=== PATIENT | female | born 1990 | race Two or more races ===

== ENCOUNTER → 2017-09-20 | Emergency (ER) | payer OTHER ==
[~2017-09-20] VITALS: Ht 162.6 cm; Wt 131.5 kg
[~2017-09-20] MED LIST: ALBUTEROL2.5 MG/3 M IH; CEFTIN250 MG PO; GILTUSS TR TAB1 EACH PO; KETO10TA2 PO; LOTREL 5-10 MG1 CAP; OMEPRAZOLE20 M1; PREVACID30 MG; PROVENTIL3 ML/2.5 M IH; PULMICORT1 MG/2 ML IH; SINGULAIR 10MG10 MG PO; SPRINTEC1 TAB; TUSSIONEX PENNKI5 ML PO; ZANTAC300 MG
== END | disposition home or self-care (01) ==
LOC: ER 17:02
DX: K52.89 Other specified noninfective gastroenteritis and colitis (principal); N39.0 Urinary tract infection, site not specified; R82.79 Other abnormal findings on microbiological examination of urine

== ENCOUNTER 2017-12-19 00:34 | Emergency (ER) | payer OTHER ==
[~2017-12-19] VITALS: Ht 162.6 cm; Wt 129.7 kg
[2017-12-19] MEDS ORDERED: PULMICORT FLE180 MCG IH (02:44)
[2017-12-19] MEDS ORDERED: PULMICORT1 MG/2 ML IH (02:44)
== END 2017-12-19 03:18 | disposition home or self-care (01) ==
LOC: ER 00:34
DX: J45.998 Other asthma (principal)

== ENCOUNTER → 2018-02-20 | Emergency (ER) | payer OTHER ==
[~2018-02-20] VITALS: Ht 162.6 cm; Wt 127.0 kg
[~2018-02-20] MED LIST changes: +ADVIL100 M1; +NORFLEX100MG PO; +PULMICORT FLE180 MCG IH
== END | disposition home or self-care (01) ==
LOC: ER 22:36
DX: S16.1XXA Strain of muscle, fascia and tendon at neck level, initial encounter (principal); S39.012A Strain of muscle, fascia and tendon of lower back, initial encounter; W18.39XA Other fall on same level, initial encounter; Y93.89 Activity, other specified; Y92.89 Other specified places as the place of occurrence of the external cause; Y99.8 Other external cause status

== ENCOUNTER 2018-04-08 00:29 | Emergency (ER) | payer OTHER ==
[~2018-04-08] VITALS: Ht 162.6 cm; Wt 118.8 kg
[2018-04-08] MEDS ORDERED: MUCINEX DM ER1 EAC1 PO (04:38)
[2018-04-08] MEDS ORDERED: PROMETH-CODEIN 65 ML PO (04:38)
[2018-04-08] MEDS ORDERED: MEDROLPACK PO (04:38)
[2018-04-08] MEDS ORDERED: IPRAT-ALBUT 0.5-3 ML IH (04:38)
[2018-04-08] MEDS ORDERED: BUDESONIDE0.5 MG/2 M IH (04:38)
[2018-04-08] MEDS ORDERED: ZITHROMAX TRI-500 MG PO (04:38)
== END 2018-04-08 04:48 | disposition home or self-care (01) ==
LOC: ER 00:29
DX: J06.9 Acute upper respiratory infection, unspecified (principal); J45.998 Other asthma

== ENCOUNTER 2019-01-11 12:04 | Emergency (ER) | payer OTHER ==
[~2019-01-11] VITALS: Ht 162.6 cm; Wt 133.8 kg
[~2019-01-11 12:04] MED LIST changes: +BUDESONIDE0.5 MG/2 M IH; +IPRAT-ALBUT 0.5-3 ML IH; +MEDROLPACK PO; +MUCINEX DM ER1 EAC1 PO; +PROMETH-CODEIN 65 ML PO; +ZITHROMAX TRI-500 MG PO
== END 2019-01-11 18:38 | disposition home or self-care (01) ==
LOC: ER 12:04
DX: J45.998 Other asthma (principal); B34.9 Viral infection, unspecified

== ENCOUNTER 2019-04-04 18:16 | Emergency (ER) | payer OTHER ==
[~2019-04-04] VITALS: Ht 162.6 cm; Wt 133.8 kg
== END 2019-04-04 20:35 | disposition home or self-care (01) ==
LOC: ER 18:16
DX: S83.8X2A Sprain of other specified parts of left knee, initial encounter (principal); S39.82XA Other specified injuries of lower back, initial encounter; W01.198A Fall on same level from slipping, tripping and stumbling with subsequent striking against other object, initial encounter; Y93.89 Activity, other specified; Y92.018 Other place in single-family (private) house as the place of occurrence of the external cause; Y99.8 Other external cause status

== ENCOUNTER 2019-07-02 13:44 | Emergency (ER) | payer OTHER ==
[~2019-07-02] VITALS: Ht 160 cm; Wt 129.3 kg
[2019-07-02] MEDS ORDERED: PRILOSEC OTC20 MG PO (14:20)
[2019-07-02] MEDS ORDERED: MAXITROL EYE O3.5 GM OP (17:05)
[2019-07-02] MEDS ORDERED: DICLOFENAC SODI75 MG PO (17:05)
== END 2019-07-02 17:45 | disposition home or self-care (01) ==
LOC: ER 13:44
DX: H00.014 Hordeolum externum left upper eyelid (principal)

== ENCOUNTER 2019-12-23 17:58 | Emergency (ER) | payer OTHER ==
[~2019-12-23] VITALS: Ht 160 cm; Wt 133.8 kg
[~2019-12-23 17:58] MED LIST changes: +DICLOFENAC SODI75 MG PO; +MAXITROL EYE O3.5 GM OP; +PRILOSEC OTC20 MG PO
== END 2019-12-24 00:12 | disposition home or self-care (01) ==
LOC: ER 17:58
DX: K52.9 Noninfective gastroenteritis and colitis, unspecified (principal)

== ENCOUNTER 2020-01-30 18:18 | Emergency (ER) | payer OTHER ==
[~2020-01-30] VITALS: Ht 162.6 cm; Wt 135.2 kg
== END 2020-01-30 20:31 | disposition home or self-care (01) ==
LOC: ER 18:18
DX: N94.4 Primary dysmenorrhea (principal); N83.01 Follicular cyst of right ovary

== ENCOUNTER 2020-08-18 19:44 | Emergency (ER) | payer OTHER ==
[~2020-08-18] VITALS: Ht 160 cm; Wt 135.2 kg
[2020-08-18] MEDS ORDERED: MEDROLPACK PO (23:02)
[2020-08-18] MEDS ORDERED: ALBUTEROL2.5 MG/3 M IH (23:02)
[2020-08-18] MEDS ORDERED: ZITHROMAX500 MG PO (23:02)
[2020-08-18] MEDS ORDERED: TUSNEL LIQUID178 ML PO (23:02)
== END 2020-08-19 00:03 | disposition home or self-care (01) ==
LOC: ER 19:44
DX: J45.998 Other asthma (principal); Z11.52 Encounter for screening for COVID-19

== ENCOUNTER 2020-10-20 14:49 | Emergency (ER) | payer OTHER ==
[~2020-10-20] VITALS: Ht 162.6 cm; Wt 131.5 kg
[~2020-10-20 14:49] MED LIST changes: +TUSNEL LIQUID178 ML PO; +ZITHROMAX500 MG PO
[2020-10-20] MEDS ORDERED: ACID REDUCER20 M1 PO (14:55)
[2020-10-20] MEDS ORDERED: INTEGRA PLUS C1 EACH PO (19:56)
[2020-10-20] MEDS ORDERED: DEPO-PROVE150 MG/1 M IM (19:56)
== END 2020-10-20 20:06 | disposition home or self-care (01) ==
LOC: ER 14:49
DX: N93.8 Other specified abnormal uterine and vaginal bleeding (principal); R10.2 Pelvic and perineal pain

== ENCOUNTER 2020-10-26 12:22 | Emergency (ER) | payer OTHER ==
[~2020-10-26] VITALS: Ht 162.6 cm; Wt 133.8 kg
[~2020-10-26 12:22] MED LIST changes: +ACID REDUCER20 M1 PO; +DEPO-PROVE150 MG/1 M IM; +INTEGRA PLUS C1 EACH PO
[2020-10-26] MEDS ORDERED: NUCYNTA100 MG PO (17:05)
[2020-10-26] MEDS ORDERED: DEPO-PROVE150 MG/11 IM (17:05)
== END 2020-10-26 17:34 | disposition home or self-care (01) ==
LOC: ER 12:22
DX: N93.8 Other specified abnormal uterine and vaginal bleeding (principal); R10.2 Pelvic and perineal pain

== ENCOUNTER 2021-04-15 22:26 | Emergency (ER) | payer OTHER ==
[~2021-04-15] VITALS: Ht 162.6 cm; Wt 136.1 kg
[~2021-04-15 22:26] MED LIST changes: +DEPO-PROVE150 MG/11 IM; +NUCYNTA100 MG PO
[2021-04-15] MEDS ORDERED: HYDROCHLOROTH12.5 MG (22:40)
== END 2021-04-16 01:12 | disposition home or self-care (01) ==
LOC: ER 22:26
DX: I10 Essential (primary) hypertension (principal)

== ENCOUNTER 2021-04-16 16:24 | Emergency (ER) | payer OTHER ==
[~2021-04-16] VITALS: Ht 162.6 cm; Wt 136.1 kg
[~2021-04-16 16:24] MED LIST changes: +HYDROCHLOROTH12.5 MG
== END 2021-04-16 22:01 | disposition home or self-care (01) ==
LOC: ER 16:24
DX: R51.9 Headache, unspecified (principal); I10 Essential (primary) hypertension

== ENCOUNTER 2021-06-24 05:14 | Emergency (ER) | payer OTHER ==
[~2021-06-24] VITALS: Ht 162.6 cm; Wt 133.8 kg
[2021-06-24] MEDS ORDERED: NIFEDIPINE20 MG (06:00)
[2021-06-24] MEDS ORDERED: KETO10TA2 PO (09:58)
== END 2021-06-24 10:07 | disposition home or self-care (01) ==
LOC: ER 05:14
DX: R10.2 Pelvic and perineal pain (principal)

== ENCOUNTER 2021-08-18 15:34 | Emergency (ER) | payer OTHER ==
[~2021-08-18] VITALS: Ht 162.6 cm; Wt 131.5 kg
[~2021-08-18 15:34] MED LIST changes: +NIFEDIPINE20 MG
[2021-08-18] MEDS ORDERED: PERCOGESIC EXT1 EACH PO (21:43)
[2021-08-18] MEDS ORDERED: ORPHENADRINE C100 MG PO (21:43)
== END 2021-08-18 22:08 | disposition home or self-care (01) ==
LOC: ER 15:34
DX: M54.30 Sciatica, unspecified side (principal); N39.0 Urinary tract infection, site not specified; I10 Essential (primary) hypertension

== ENCOUNTER 2021-09-28 02:46 | Emergency (ER) | payer OTHER ==
[~2021-09-28] VITALS: Ht 162.6 cm; Wt 131.5 kg
[~2021-09-28 02:46] MED LIST changes: +ORPHENADRINE C100 MG PO; +PERCOGESIC EXT1 EACH PO
[2021-09-28] MEDS ORDERED: SINGULAIR 10MG10 MG PO (07:32)
[2021-09-28] MEDS ORDERED: FLOVENT HFA12 G1 IH (07:32)
[2021-09-28] MEDS ORDERED: PROVENTIL HFA6.7 GM IH (07:32)
[2021-09-28] MEDS ORDERED: ALBUTEROL2.5 MG/3 M IH (07:32)
== END 2021-09-28 07:54 ==
LOC: ER 02:46
DX: J45.901 Unspecified asthma with (acute) exacerbation (principal); Z20.822 Contact with and (suspected) exposure to COVID-19

== ENCOUNTER 2022-02-13 18:54 | Emergency (ER) | payer OTHER ==
[~2022-02-13] VITALS: Ht 162.6 cm; Wt 136.1 kg
[~2022-02-13 18:54] MED LIST changes: +FLOVENT HFA12 G1 IH; +PROVENTIL HFA6.7 GM IH
== END 2022-02-13 23:02 | disposition home or self-care (01) ==
LOC: ER 18:54
DX: J45.901 Unspecified asthma with (acute) exacerbation (principal); I10 Essential (primary) hypertension

== ENCOUNTER 2022-02-28 16:30 | Emergency (ER) | payer OTHER ==
[~2022-02-28] VITALS: Ht 162.6 cm; Wt 127.0 kg
== END 2022-02-28 20:22 | disposition home or self-care (01) ==
LOC: ER 16:30
DX: N39.0 Urinary tract infection, site not specified (principal)

== ENCOUNTER 2023-02-01 19:46 | Emergency (ER) | payer OTHER ==
[~2023-02-01] VITALS: Ht 162.6 cm; Wt 131.5 kg
== END 2023-02-02 02:23 | disposition home or self-care (01) ==
LOC: ER 19:46
PROVIDERS: Emergency Medicine
DX: K57.32 Diverticulitis of large intestine without perforation or abscess without bleeding (principal); R10.9 Unspecified abdominal pain; N83.291 Other ovarian cyst, right side

== ENCOUNTER 2023-05-26 14:12 | Emergency (ER) | payer OTHER ==
[~2023-05-26] VITALS: Ht 162.6 cm; Wt 131.5 kg
[2023-05-26 16:04] LABS: HEMATOCRIT 34.4 % (36.0-45.00); HEMOGLOBIN 11.2 g/dL (12.0-15.00); MEAN CORPUSCULAR HEMOGLOBIN 22.8 pg (27.00-32.0); MEAN CORPUSCULAR HGB CONC 32.6 g/dl (32.0-36.0); PLATELET COUNT 363 K/uL (150-450); RED BLOOD COUNT 4.93 M/uL (4.00-6.00); RED CELL DISTRIBUTION WIDTH 17.5 % (11.5-14.5)
[2023-05-26 16:06] LABS: MEAN CELL VOLUME 69.7 fL (80.00-100.00)
== END 2023-05-26 21:09 | disposition home or self-care (01) ==
LOC: ER 14:12
PROVIDERS: General Practice
DX: J45.901 Unspecified asthma with (acute) exacerbation (principal); Z20.822 Contact with and (suspected) exposure to COVID-19

== ENCOUNTER 2024-03-12 14:51 | Emergency (ER) | payer OTHER ==
[~2024-03-12] VITALS: Ht 165.1 cm; Wt 122.5 kg
[2024-03-12] MEDS ORDERED: GUAIFENESIN/DEXTROMETHORPHAN 10ML BLIST.PACK PO ONE (16:15)
[2024-03-12] MEDS ORDERED: METHYLPREDNISOLONE SOD SUCC 125 MG VIAL IV ONE (16:15)
[2024-03-12] MEDS ORDERED: IPRATROPIUM/ALBUTEROL SULFATE 3 ML AMPUL.NEB IH SCH (16:15)
[2024-03-12 16:40] LABS: HEMATOCRIT 33.7 % (36.0-45.00); HEMOGLOBIN 10.5 g/dL (12.0-15.00); MEAN CELL VOLUME 72.4 fL (80.00-100.00); MEAN CORPUSCULAR HEMOGLOBIN 22.6 pg (27.00-32.0); MEAN CORPUSCULAR HGB CONC 31.3 g/dl (32.0-36.0); PLATELET COUNT 399 K/uL (150-450); RED BLOOD COUNT 4.66 M/uL (4.00-6.00); RED CELL DISTRIBUTION WIDTH 18.1 % (11.5-14.5)
[2024-03-12] MEDS ORDERED: SINGULAIR10 MG PO (17:48)
[2024-03-12] MEDS ORDERED: ALBUTEROL1.25 MG/3 IH (17:48)
[2024-03-12] MEDS ORDERED: MEDROLPACK PO (17:48)
[2024-03-12] MEDS ORDERED: ZYRTEC10 MG PO (17:48)
[2024-03-12] MEDS ORDERED: IPRATROPIU0.2 MG/1 M IH (17:48)
[2024-03-12] MEDS ORDERED: ZITHROMAX500 MG PO (17:48)
== END 2024-03-12 18:04 ==
LOC: ER 14:52
PROVIDERS: Nurse Practitioner Family
DX: J45.901 Unspecified asthma with (acute) exacerbation (principal); J06.9 Acute upper respiratory infection, unspecified; I10 Essential (primary) hypertension; Z20.822 Contact with and (suspected) exposure to COVID-19

== ENCOUNTER 2024-05-04 22:03 | Emergency (ER) | payer OTHER ==
[~2024-05-04] VITALS: Ht 162.6 cm; Wt 127.0 kg
[~2024-05-04 22:03] MED LIST changes: +ALBUTEROL1.25 MG/3 IH; +IPRATROPIU0.2 MG/1 M IH; +SINGULAIR10 MG PO; +ZYRTEC10 MG PO
[2024-05-04 22:11] VITALS: BP 146/85; O2SAT 99
[2024-05-04] MEDS ORDERED: TRAMADOL HCL 50 MG TABLET PO ONE (23:00)
[2024-05-04] MEDS ORDERED: METHYLPREDNISOLONE SOD SUCC 125 MG VIAL IV ONE (23:00)
[2024-05-04 23:45] LABS: HEMATOCRIT 32.7 % (36.0-45.00); HEMOGLOBIN 10.5 g/dL (12.0-15.00); MEAN CELL VOLUME 72.9 fL (80.00-100.00); MEAN CORPUSCULAR HEMOGLOBIN 23.4 pg (27.00-32.0); PLATELET COUNT 370 K/uL (150-450); RED BLOOD COUNT 4.49 M/uL (4.00-6.00); RED CELL DISTRIBUTION WIDTH 18.3 % (11.5-14.5)
== END 2024-05-05 00:14 | disposition home or self-care (01) ==
LOC: ER 22:03
PROVIDERS: General Practice
DX: N93.8 Other specified abnormal uterine and vaginal bleeding (principal)